=== PATIENT | male | born 1970 | race African-American/Black ===

== ENCOUNTER 2023-05-01 18:42 | Emergency (ER) | payer OTHER ==
[2023-05-01 18:57] VITALS: BP 129/59; PULSE 58; RESP 18; TEMP 98.2; BMI 25.0
[2023-05-01] MEDS ORDERED: ACETAMINOPHEN 500 MG TABLET (FP) PO ONE (19:43)
[2023-05-01] MEDS ORDERED: ACETAMINOPHEN 500 MG TABLET (FP) ONE (21:25)
== END 2023-05-01 22:55 | disposition home or self-care (01) ==
LOC: JER 18:42
DX: S01.81XA Laceration without foreign body of other part of head, initial encounter (principal); S60.511A Abrasion of right hand, initial encounter; S70.212A Abrasion, left hip, initial encounter; R22.42 Localized swelling, mass and lump, left lower limb; M25.562 Pain in left knee; S80.212A Abrasion, left knee, initial encounter; R51.9 Headache, unspecified; V00.841A Fall from standing electric scooter, initial encounter; Y93.55 Activity, bike riding; R42 Dizziness and giddiness
CPT/HCPCS: 70450-TC; 71046-TC-FY; 72170-TC-FY; 73564-TC-LT-FY; 93005; 93010; 99285-25